=== PATIENT | female | born 1990 | race Two or more races ===

== ENCOUNTER 2018-09-12 16:31 | Inpatient (IN) | payer OTHER ==
[~2018-09-12] VITALS: Ht 175.3 cm; Wt 78.9 kg
== END 2018-10-20 11:32 | disposition home or self-care (01) | DRG 788 ==
LOC: OB/GYN 09-20 13:15 → LDR 10-17 06:06 → OB/GYN 10-17 20:11
PROVIDERS: ADMIT Obstetrics & Gynecology
PROC: 3E0P7VZ Introduction of Hormone into Female Reproductive, Via Natural or Artificial Opening (ICD-10-PCS; 2018-10-17)
PROC: 3E033VJ Introduction of Other Hormone into Peripheral Vein, Percutaneous Approach (ICD-10-PCS; 2018-10-17)
PROC: 4A1HXCZ Monitoring of Products of Conception, Cardiac Rate, External Approach (ICD-10-PCS; 2018-10-17)
PROC: 10D00Z1 Extraction of Products of Conception, Low, Open Approach (ICD-10-PCS; principal; 2018-10-17 17:00)
DX: O82 Encounter for cesarean delivery without indication (principal); O61.0 Failed medical induction of labor; Z3A.40 40 weeks gestation of pregnancy; Z37.0 Single live birth; Z22.330 Carrier of Group B streptococcus